=== PATIENT | male | born 1975 | race Caucasian/White ===

== ENCOUNTER 2019-05-25 00:06 | Emergency (ER) | payer OTHER ==
[~2019-05-25] VITALS: Ht 182.9 cm; Wt 87.0 kg
--- NOTE | 2019-05-25 00:13 | NUR ---
LEGAL HOLD DOCUMENT ON FILE.
--- NOTE | 2019-05-25 00:45 | NUR ---
BREAK RN: ROOM SECURE. PT IN GOWN AND BLANKETS PROVIDED. PT INITIALLY REFUSED LABS, DR. CRUZ AT BEDSIDE SPEAKING WITH PT EDUCATING HIM ON THE NEED FOR THE LAB WORK. PT AGREES. PT AMBULATORY TO RESTROOM FOR A URINE SAMPLE. SAMPLE PROVIDED. VERY LIGHT IN COLOR. SAMPLE LABELED AND SENT TO LAB
[2019-05-25 00:47] LABS: MEAN CORPUSCULAR HEMOGLOBIN 31.2 pg (27.5-34.5); MEAN CORPUSCULAR HGB CONC 33.3 g/dL (33.2-36.2); MEAN CORPUSCULAR VOLUME 93.7 fL (81-97); MEAN PLATELET VOLUME 8.3 fL (7.4-10.4); PLATELET COUNT 266 x10^3/uL (130-400); RED BLOOD COUNT 4.65 x10^6/uL (4.38-5.82); RED CELL DISTRIBUTION WIDTH 14.2 % (9.4-14.8)
[2019-05-25 00:58] LABS: ALBUMIN 4.9 g/dL (3.4-5.0); ANION GAP 5 mmol/L (5-15); CALCIUM 8.7 mg/dL (8.5-10.1); CHLORIDE 106 mmol/L (98-107); CREATININE 1.05 mg/dL (0.7-1.3); SALICYLATE LEVEL < 1.7 mg/dL (2.8-20.0)
[2019-05-25 01:09] LABS: AMPHETAMINE SCREEN, URINE Negative (Negative); BARBITURATE SCREEN, URINE Negative (Negative); BENZODIAZEPINE SCREEN, URINE Negative (Negative); CANNABINOID SCREEN, URINE Negative (Negative); COCAINE SCREEN, URINE Negative (Negative); METHADONE SCREEN, URINE Negative (Negative); OPIATE SCREEN, URINE Negative (Negative)
[2019-05-25 01:12] LABS: MD YES
[2019-05-25 01:17] LABS: <RBC MORPHOLOGY> NORMAL; BASOS#(MANUAL) 0.07 x10^3/uL (0-0.1); BASOS% (MANUAL) 1 % (0-1); EOS#(MANUAL) 0.22 x10^3/uL (0.0-0.4); EOS% (MANUAL) 3 % (1-7); LYMPHS% (MANUAL) 54 % (22-44); METAMYELOCYTES# (MANUAL) 0.07 x10^3/uL (0-0); METAMYELOCYTES% (MANUAL) 1 % (0-1); MONOS#(MANUAL) 0.52 x10^3/uL (0.3-2.7); MONOS% (MANUAL) 7 % (2-9); REACTIVE LYMPHS # (MANUAL) 0.74 x10^3/uL (0-0); REACTIVE LYMPHS % (MANUAL) 10 % (0-0); SEG#(MANUAL) 1.78 x10^3/uL (1.8-6.8); SEGS% (MANUAL) 24 % (42-75)
[2019-05-25 01:18] LABS: <PLATELET ESTIMATE> ADEQUATE; LARGE PLATELETS 1+
[2019-05-25] MEDS ORDERED: ESZO1TAB8 PO (01:35)
[2019-05-25] MEDS ORDERED: IMAT400T PO (01:35)
--- NOTE | 2019-05-25 01:37 | NUR ---
multiple glass of water provided. states that he drinks 4-5 gallons of water a day " I have to " .
--- NOTE | 2019-05-25 01:40 | NUR ---
1 belonging bag placed in locker.
--- NOTE | 2019-05-25 01:45 | NUR ---
patient on the phone with his brother. calm and cooperative.
--- NOTE | 2019-05-25 02:22 | NUR ---
patient still awake lying in gurney. no complaints made.
--- NOTE | 2019-05-25 03:03 | NUR ---
Lukas pena in [facility] - 05/25/19 at 0303 by NANDA crackers and water provided.
--- NOTE | 2019-05-25 03:23 | NUR ---
REPORT FROM MALLORY ROWELL. ASSUMING CARE OF PT AT THIS TIME
--- NOTE | 2019-05-25 03:50 | NUR ---
PT RESTING ON [place]JO [place], PT EXPRESSES NO NEEDS AT THIS TIME.
--- NOTE | 2019-05-25 05:00 | NUR ---
SOC CALLED FOR TELEPSYCH CONSULT
--- NOTE | 2019-05-25 05:46 | NUR ---
DIET TRY ORDERED, TELEPSYCH COMPUTER IN ROOM.
--- NOTE | 2019-05-25 06:28 | NUR ---
REPORT GIVEN TO SOC , [facility] WILL CALL BACK AFTER SEEING THE PT. PT UPDATED ON POC AT THIS TIME
--- NOTE | 2019-05-25 06:40 | NUR ---
CALL FROM SOC, PT NOT ABLE TO RECALL WHAT HAPPENED LAST NIGHT. PER SOC, CAN'T KEEP HIM IF HE DENIES ALL SI/ HI AND IS SOBER AT THIS TIME. ERP TO BE UPDATED ON SOC DISCUSSION.
--- NOTE | 2019-05-25 06:54 | NUR ---
REPORT TO CHRISTINE ROWELL
--- NOTE | 2019-05-25 07:12 | NUR ---
DR TOMPKINS TO BEDSIDE. DISCUSS POC. ASSESS SUICIDE RISKS. AWAITING FURTHER ORDERS AT THIS TIME
--- NOTE | 2019-05-25 07:19 | NUR ---
PT AMBULATED IN HALLWAY TO USE TELEPHONE. TOLERATED WELL. STEADY GAIT
--- NOTE | 2019-05-25 08:38 | NUR ---
AT TIME OF DC, PSYCH MD CALLED TO DISCUSS CASE WITH DR TOMPKINS. AFTER DISCUSSION PT PLACED ON HOLD BY DR TOMPKINS FOR FURTHER EVALUATION AND TREATMENT. PT AGREEABLE TO POC AT THIS TIME. AWAITING FURTHER ORDERS
--- NOTE | 2019-05-25 08:40 | NUR ---
PT ATE BREAKFAST AND ABLE TO CONTACT BROTHER AT THIS TIME
--- NOTE | 2019-05-25 10:52 | NUR ---
THROUGHPUT: DENIED BY [facility] D/T NON-CONTRACTED INS ([facility]) PER [facility]UP[facility]; PACKET FAXED TO [facility].
--- NOTE | 2019-05-25 11:16 | NUR ---
THROUGHPUT: PERFORMANCE MANAGEMENT CONSULTANT TO SEE PT.
--- NOTE | 2019-05-25 12:06 | NUR ---
BREAK RN: PT SLEEPING, RESPIRATIONS EVEN AND UNLABORED, SITTER OUTSIDE DOOR, REMAINS SECURE.
--- NOTE | 2019-05-25 12:45 | NUR ---
PT PROVIDED WITH MEAL TRAY. DENIES FURTHER NEEDS AT THIS TIME
--- NOTE | 2019-05-25 13:10 | NUR ---
THROUGHPUT: [facility] CALLED FOR FURTHER INFO ON PT, CALL REFERRED TO SHAUN SHUKLA TO CONSULT WITH SHAUN TREJO & WILL CALL BACK TO DETERMINE STATUS.
--- NOTE | 2019-05-25 13:34 | NUR ---
ERMELINDA DAVIS ASSESSING AT THIS TIME
--- NOTE | 2019-05-25 14:06 | NUR ---
[facility] denied patient at this time.
[2019-05-25 16:06] VITALS: BP 129/74
== END 2019-05-25 16:14 | disposition home or self-care (01) ==
LOC: ED 00:54
DX: F23 Brief psychotic disorder (principal); F22 Delusional disorders; F10.129 Alcohol abuse with intoxication, unspecified; Y90.9 Presence of alcohol in blood, level not specified
CPT/HCPCS: 36415; 80048; 80307; 82040; 85025; 99284

== ENCOUNTER → 2020-09-03 | Outpatient (CLI) | payer OTHER ==
[~2020-09-03] MED LIST: ESZO1TAB8 PO; IMAT400T6 PO
[2020-09-03 09:40] LABS: BASOPHILS % (AUTO) 1 % (0-1); EOSINOPHILS % (AUTO) 2 % (1-7); LYMPHOCYTES % (AUTO) 41 % (22-44); MEAN CORPUSCULAR HEMOGLOBIN 32.3 pg (27.5-34.5); MEAN CORPUSCULAR HGB CONC 34.6 g/dL (33.2-36.2); MEAN PLATELET VOLUME 7.8 fL (7.4-10.4); MONOCYTES % (AUTO) 10 % (2-9); NEUTROPHILS % (AUTO) 48 % (42-75); PLATELET COUNT 232 x10^3/uL (130-400); RED CELL DISTRIBUTION WIDTH 14.1 % (9.4-14.8)
[2020-09-03 09:43] LABS: MD NO
[2020-09-03 09:52] LABS: CHLORIDE 111 mmol/L (98-107)
[2020-09-03 09:59] LABS: ALANINE AMINOTRANSFERASE 70 U/L (12-78); ALBUMIN 4.2 g/dL (3.4-5.0); ALKALINE PHOSPHATASE 56 U/L (45-117); ANION GAP 7 mmol/L (5-15); BILIRUBIN,TOTAL 0.6 mg/dL (0.2-1.0); CALCIUM 9.5 mg/dL (8.5-10.1); CHOL/HDL RATIO 6.7; CHOLESTEROL, TOTAL 287 mg/dL (140-239); CREATININE 0.96 mg/dL (0.7-1.3); HDL CHOL % 15 % (26-37); HDL CHOLESTEROL (DIRECT) 43 mg/dL (40-60); TOTAL PROTEIN 7.3 g/dL (6.4-8.2); TRIGLYCERIDES 450 mg/dL (50-200)
== END | disposition home or self-care (01) ==
LOC: LAB 09:25
PROVIDERS: ATTEND Internal Medicine Hematology & Oncology
DX: Z00.01 Encounter for general adult medical examination with abnormal findings (principal); C92.20 Atypical chronic myeloid leukemia, BCR/ABL-negative, not having achieved remission; E78.5 Hyperlipidemia, unspecified; R73.01 Impaired fasting glucose
CPT/HCPCS: 36415; 80053; 80061; 83036; 85025